=== PATIENT | male | born 1950 | race Caucasian/White ===

== ENCOUNTER 2017-03-18 10:17 | Emergency (ER) | payer MEDICARE, OTHER ==
[2017-03-18] MEDS ORDERED: Aspirin 81 MG Tab.Chew ONE (10:29)
[2017-03-18] MEDS ORDERED: Sodium Chloride 0.9% 1,000 ML IV SCH (10:30)
[2017-03-18] MEDS ORDERED: Aspirin 81 MG Tab.Chew PO ONE (10:30)
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
[2017-03-18 10:52] LABS: O2 DELIVERY DEVICE NASAL CANNULA; PCO2 ARTERIAL 44 mmHG (35-45)
[2017-03-18 10:53] LABS: BASE EXCESS ARTERIAL 6 mmol/L (-2-3); BICARBONATE,ARTERIAL 30.3 mmol/L (22-26); O2 SATURATION ARTERIAL 94 % (95-98); PO2 ARTERIAL 68 mmHG (80-105)
[2017-03-18 10:54] LABS: CHLORIDE,CL 91 mmol/L (98-107); SODIUM,NA 128 mmol/L (136-145)
[2017-03-18] MEDS ORDERED: Iopamidol 612 MG/ML 100 ML Bottle IVPUSH ONE (12:00)
[2017-03-18 12:12] VITALS: BP 127/71
== END 2017-03-18 12:55 ==
LOC: LL.ED 10:17
DX: C34.90 Malignant neoplasm of unspecified part of unspecified bronchus or lung (principal); I10 Essential (primary) hypertension; K21.9 Gastro-esophageal reflux disease without esophagitis; M19.90 Unspecified osteoarthritis, unspecified site; F41.9 Anxiety disorder, unspecified; F32.9 Major depressive disorder, single episode, unspecified; Z98.890 Other specified postprocedural states; Z98.49 Cataract extraction status, unspecified eye; Z87.891 Personal history of nicotine dependence; Z79.899 Other long term (current) drug therapy; Z88.0 Allergy status to penicillin
CPT/HCPCS: 36415; 70491; 71010; 71260; 80053; 82550; 82553; 82803; 82962; 83605; 84484; 85025; 93005; 96360; 96361; 99285; A9270; J7030; Q9967